=== PATIENT | female | born 1960 | race Caucasian/White ===

== ENCOUNTER → 2016-09-21 | Outpatient (CLI) | payer OTHER ==
--- NOTE | ~2016-09-21 | CR58 ---
[facility] A Service of [facility] RADIOLOGY TEXT RESULTS PATIENT: LADARIUS COCHRAN LOCATION: [facility] : 56 UNIT #: [id number] AGE: [address]: AR LAWRENCE SEX: F ORDER DR: [id number] [facility] [address] [place], [place] [address] [id number] O MR#: [id number] Acc #: [id number] NAME: LADARIUS COCHRAN : 1960 SEX: F STUDY DATE/TIME: 09/21/2016 13:37 UNIT: [facility] ROOM: STUDY DESCRIPTION: CR Cervical Spine 2 or 3 Views Attending Physician: Ar Lawrence M.D. Referring Physician: Ar Lawrence M.D. Ordering Physician: Alana Brock M.D. Primary Care Physician: Ar Lawrence M.D. MEDICAL IMAGING REPORT This report is preliminary unless electronic signature is present EXAM Cervical spine 5 views 09/21/2016 HISTORY Neck pain with decreased range of motion of neck, unable to turn neck. Symptoms for 2 months with no known injury. FINDINGS 5 views of the cervical spine demonstrate no fracture. There is a 2 mm anterolisthesis of C3 on C4. The remainder of the posterior vertebral body line is intact. There is degenerative change with mild disc space narrowing at C4-5 there is moderate narrowing at C5-6 and C6-7. Anterior posterior osteophytes are seen from C3-C7. There is degenerative change involving articular facets. There is no retropharyngeal soft tissue swelling. IMPRESSION Multilevel degenerative change in the cervical spine. No acute abnormality. Dictated by... Zenon Maciel M.D. THIS IS AN ELECTRONICALLY VERIFIED REPORT Zenon Maciel M.D. at 09/22/2016 8:08 AM VIRGILIO/david TD: 09/21/2016 20:07 JOB #: [id number] MEDICAL IMAGING REPORT Page 1 of 1 COPY
== END | disposition home or self-care (01) ==
LOC: CRAD 13:14
DX: M54.2 Cervicalgia (principal); M47.812 Spondylosis without myelopathy or radiculopathy, cervical region
CPT/HCPCS: 72040